=== PATIENT | female | born 1950 | race Caucasian/White ===

== ENCOUNTER 2023-03-11 14:51 | Emergency (ER) | payer MEDICARE, SELFPAY ==
[2023-03-11 15:01] VITALS: BP 129/70
--- NOTE | 2023-03-11 17:12 | ED.GENMED ---
History of Present Illness
<Zaira Whitaker PA-C - Last Filed: 03/12/23 00:33>
General
Chief Complaint: Fall
Source: patient
Exam Limitations: none
Time Seen by Provider: 03/11/23 16:28
Nursing documentation reviewed up to this point in time: agreed with
Travel History
Have you had any contact with someone who has COVID-19?: No
Do you have any symptoms of coronavirus? Fever > 100 degrees, chills, cough, shortness of breath, sore throat, loss of taste or smell, muscle aches, or headache?: No
History of Present Illness
History of Present Illness:
Patient is a 72 y.o female with history DM2, HTN presenting for evaluation of lower back pain after sustaining a fall earlier today. Patient reports that she woke up and was getting up to go to the bathroom when she became dizzy and then proceeded
to slip - landing directly on her back on the hardwood floor. She did not hit her head or lose consciousness. She denies any headache, neck pain, dizziness, numbness or tingling in lower extremities. She denies any chest pain, palpitations,
shortness of breath, diaphoresis. No recent illnesses. No urinary symptoms or GI symptoms.
She did also sustain a floor 3 days ago when she became lightheaded while walking to her kitchen.
She did have a lumbar spinal fusion in 2021.
Past History
<Zaiar Whitaker PA-C - Last Filed: 03/12/23 00:33>
Past History
ED Past Medical History: COPD, HTN, Hypercholesterolemia and NIDDM
Social History
Tobacco: Non-smoker
Family History
Family History: CAD
Phy Exam
<Zaira Whitaker PA-C - Last Filed: 03/12/23 00:33>
Physical Exam
Physical Exam:
General: Moderate distress due to pain and non-toxic, vital signs stable�patient afebrile
HEENT: Atraumatic, normocephalic; pupils equal round reactive light bilaterally, extraocular muscles intact bilaterally protecting airway
Neck: appears supple, no cervical spine tenderness; some lumbar midline spinal tenderness
CV: Regular rate rhythm, heart sounds normal, no evidence of cyanosis
Resp: No evidence of respiratory distress, lungs clear, no accessory muscle use
Abd: Soft, nontender, non-distended
Extremities: No deformities, no evidence of cyanosis or edema, no tenderness of lower legs; full range of motion in bilateral hips, bilateral knees
Neuro: alert and oriented to person place time, speech normal, no focal neurologic deficits
Psych: Normal affect
Skin: Intact, no rashes
Course
<Zaira Whitaker PA-C - Last Filed: 03/12/23 00:33>
Orders/Labs/Results
Orders:
Orders
03/11/23 17:18
Orthostatic VS- Treatment ONCE
Oxycodone/Acetaminophen [Percocet 5/325] 1 tablet PO NOW STA
LS Spine, 2 or 3 View [CR Lumbar Spine 2 Or 3 Views] Urgent
Comment: hx lumbar spinal fusion 2021
Reason For Exam: fall, low back pain
03/11/23 17:19
Electrocardiogram (*1) Urgent
Reason for Study: Vertigo / Dizzy
EKG- Treatment ONCE
03/11/23 17:32
Complete Blood Count/With Diff Urgent
Comprehensive Metabolic Panel Urgent
Troponin I Urgent
03/11/23 19:10
0.9% Sodium Chloride 1000 ml [Nss] 500 ml IV BOLUS
Abnormal Lab Results
03/11/23
17:32
WBC 11.0 H 10^3/uL
(4.8-10.8)
Absolute Neuts (auto) 7.8 H 10^3/uL
(1.4-6.5)
Chloride 95 L mmol/L
(98-107)
Carbon Dioxide 31 H mmol/L
(22-30)
BUN 25 H mg/dl
(7-17)
Glucose 101 H mg/dl
(70-99)
AST 42 H U/L
(14-36)
03/11/23 17:32
03/11/23 17:32
Vital Signs
Initial and Last Documented VS:
Initial Vital Signs
Temp Pulse Resp BP Pulse Ox
98.4 F 94 18 129/70 98
03/11/23 15:01 03/11/23 15:01 03/11/23 15:01 03/11/23 15:01 03/11/23 15:01
Last Documented Vital Signs
Temp Pulse Resp BP Pulse Ox
98.4 F 94 18 129/70 98
03/11/23 15:01 03/11/23 15:01 03/11/23 15:01 03/11/23 15:01 03/11/23 15:01
<Enrrique Hernandez, - Last Filed: 03/11/23 19:46>
Orders/Labs/Results
Orders:
Orders
03/11/23 17:18
Orthostatic VS- Treatment ONCE
Oxycodone/Acetaminophen [Percocet 5/325] 1 tablet PO NOW STA
LS Spine, 2 or 3 View [CR Lumbar Spine 2 Or 3 Views] Urgent
Comment: hx lumbar spinal fusion 2021
Reason For Exam: fall, low back pain
03/11/23 17:19
Electrocardiogram (*1) Urgent
Reason for Study: Vertigo / Dizzy
EKG- Treatment ONCE
03/11/23 17:32
Complete Blood Count/With Diff Urgent
Comprehensive Metabolic Panel Urgent
Troponin I Urgent
03/11/23 19:10
0.9% Sodium Chloride 1000 ml [Nss] 500 ml IV BOLUS
Abnormal Lab Results
03/11/23
17:32
WBC 11.0 H 10^3/uL
(4.8-10.8)
Absolute Neuts (auto) 7.8 H 10^3/uL
(1.4-6.5)
Chloride 95 L mmol/L
(98-107)
Carbon Dioxide 31 H mmol/L
(22-30)
BUN 25 H mg/dl
(7-17)
Glucose 101 H mg/dl
(70-99)
AST 42 H U/L
(14-36)
03/11/23 17:32
03/11/23 17:32
Vital Signs
Initial and Last Documented VS:
Initial Vital Signs
Temp Pulse Resp BP Pulse Ox
98.4 F 94 18 129/70 98
03/11/23 15:01 03/11/23 15:01 03/11/23 15:01 03/11/23 15:01 03/11/23 15:01
Last Documented Vital Signs
Temp Pulse Resp BP Pulse Ox
98.4 F 94 18 129/70 98
03/11/23 15:01 03/11/23 15:01 03/11/23 15:01 03/11/23 15:01 03/11/23 15:01
<Zaira Whitaker PA-C - Last Filed: 03/12/23 00:33>
MDM/Problems Addressed
Differential Diagnosis Includes:
Arrhythmia, hyponatremia, orthostatic hypotension, spinal fracture, spinal contusion
MDM/Problems Addressed:
Patient is a 72-year-old female presenting for back pain after fall earlier today. She endorses dizziness prior to fall today. She had a fall a few days ago due to lightheadedness without sustaining any injuries at the time. No neurologic
deficits. No chest pain, shortness of breath, fever, recent illnesses. History of lumbar spinal fusion in 2021. No recent changes in medications other than increasing her dose of Mounjaro. She is hemodynamically stable. Afebrile. In moderate
distress due to pain. Palpable tenderness to lumbar spine, no C-spine tenderness. She is neurologically intact. Based on history of recent falls due to dizziness/lightheadedness will check basic labs, troponin, EKG. Will get orthostatic vital
signs will get x-ray of lumbar spine. Will give Percocet for pain.
EKG shows normal sinus rhythm without signs of ischemia. CBC without any clinically significant abnormalities. CMP with mild elevation in BUN to 25. Otherwise no clinically significant abnormalities. Troponin negative. Elevation in BUN in
conjunction with borderline orthostatic vital signs suggest likely mild dehydration. Will give IV fluids
X-ray shows acute compression fracture of L1. She was able to ambulate independently. She is stable for discharge with orthopedic follow-up for possible PT. Return precautions discussed. Patient is comfortable this plan. All questions answered.
Chronic conditions affecting care:
HTN, DM
Acute Exacerbation and/or Progression of Chronic Illness:
Compression fracture of L1
<Zaira Whitaker PA-C - Last Filed: 03/12/23 00:33>
*Radiology
Radiology exam reviewed: preliminary read by ED provider and radiology read reviewed
*Pulse Oximetry
Patient hypoxic: no
*EKG
Interpreted by ED Provider?: Yes
EKG Intrepretation Date: 03/12/23
Interpretation: normal
Comparison EKG: changes noted
Heart Rate: 79
Rate: normal
Rhythm: sinus
[place]: normal axis
Interval: normal interval
QRS Pattern: normal QRS
Ischemia: no ischemia
*[place] Nailer Interpretation
Rate: [place] Nailer- N/A
*Critical Care Note
Total Time (30-74mins, 75-104mins- exclusive of procedures): Not Applicable
ED Attending Note
<Zaira Whitaker PA-C - Last Filed: 03/12/23 00:33>
-
Portions of this chart may have been created with voice recognition software.� Occasional wrong word or��sound alike� substitutions may have occurred due to the inherent limitations of voice recognition software.
<Enrrique Hernandez DO - Last Filed: 03/11/23 19:46>
ED Attending Note
Patient seen and examined by attending physician: Yes
I performed the substantive portion of visit, reviewed & personally made and approve the management plan that is documented in note by myself or MATTHEW.: Yes
ED Attending Note:
Patient is a 72-year-old female presents to the emergency department complaining of back pain. 3 days ago the patient stood up and walked down into her kitchen while in the kitchen became lightheaded and fell to the floor. Patient states she has
sore back and hit her head but was able to get up without difficulty has been fine since. This morning the patient got up and felt dizzy as in the room spinning around as well as lightheaded. Patient went to the bathroom and then found herself on
the floor. Patient denies syncope. Patient does complain of much more severe back pain. Patient had a fusion of L4 and 5 in the past. Patient denies any chest pain, palpitations, shortness of breath, diaphoresis. Patient denies any GI or
symptoms. Patient denies any visual or speech difficulties. Patient denies any focal weakness. Patient states today was feeling dizzy and lightheaded. On physical exam patient appears to be in minimal distress. Normocephalic with mild
tenderness or trauma. Neck is supple without tenderness in the cervical spine. No neck vein distention or bruits. Heart is regular lungs are clear. Abdomen is soft nontender. Extremities without edema, cyanosis or tenderness. Patient does
have palpable lumbar spine tenderness. X-rays show L1 compression fracture. EKG and labs are unremarkable except for an elevated BUN. Will give the patient fluids that she has a mild tilt. Patient was encouraged to remain hydrated and referred
to orthopedics for compression fracture and follow-up with probable physical therapy.
Discharge Plan
Departure
Patient Disposition: Home (Routine Discharge)
Date of Disposition: 03/11/23
Time of Disposition: 19:51
Patient with high blood pressure during this ER visit?: Yes
Condition: Good
Covid-19: Not Applicable
Discharge Problem:
Compression fracture of L1 vertebra
Instructions: Vertebral Compression Fracture (DC)
Prescriptions:
New
oxycodone 5 mg tablet
5 mg PO Q6H PRN (Reason: Pain) Qty: 10 0RF
No Action
amoxicillin-pot clavulanate 875-125 mg tablet
1 tab PO BID Qty: 20 0RF
mupirocin calcium 2 % cream
1 applic topical TID Qty: 30 0RF
Referrals:
Etienne Russell MD [Active] - As needed
Maddie Flores DO [Family Provider] -
Reji Dickinson MD [Active] - As needed
Activity Restrictions/Additional Instructions:
-Return to the emergency department with any chest pain, shortness of breath, numbness or weakness in lower extremities, loss of bowel/bladder control, significant worsening in current symptoms, or any other concerns
-Your prescription has been sent to your pharmacy. Take these as needed for severe pain. These may make your drowsy. Do not take prior to driving.
-Can take tylenol as needed for pain.
-Follow-up with orthopedics or pain management as needed
Interventions
Interventions:
*Risk Screen - Suicide Last Done: 03/11/23 15:01
*General Assessment Last Done: 03/11/23 16:42
*Neglect/Abuse Screening Last Done: 03/11/23 15:01
ED- Fall Risk Assessment Last Done: 03/11/23 16:49
*ED COVID-19 Vaccine History Last Done: 03/11/23 15:01
*Nursing Disposition Last Done: 03/11/23 20:05
ED-Musculoskeletal Assessment Last Done: 03/11/23 16:43
ED- Neurological Assessment Last Done: 03/11/23 16:43
ED-Skin Assessment Last Done: 03/11/23 16:43
Discharge Date and Time
Discharge Date/Time: 03/11/23 20:06
[2023-03-11] MEDS: PERCOCET 5/325 1 TABLET PO (17:26)
[2023-03-11 17:40] LABS: % Basophils 0.8 % (0-2); % Eosinophils 1.2 % (0-6); % Immature Granulocytes 0.4 % (0-0.5); % Monocytes 5.7 % (1.7-9.3); % Neutrophils 70.9 % (42.2-75.2); Absolute Basophils 0.1 10^3/uL (0-0.2); Absolute Eosinophils 0.1 10^3/uL (0-0.7); Absolute Lymphocytes 2.3 10^3/uL (1.2-3.4); Absolute Monocytes 0.6 10^3/uL (0.1-0.6); Absolute Neutrophils 7.8 10^3/uL (1.4-6.5); Hematocrit 39.3 % (37.0-47.0); Hemoglobin 13.6 g/dL (12.0-16.0); Mean Corp Hgb Conc. 34.6 g/dL (33.0-37.0); Mean Corpuscular Hgb 29.4 pg (27.0-31.0); Mean Corpuscular Volume 85.1 fL (81.0-99.0); Mean Platelet Volume 8.6 fL (7.4-10.4); Nucleated Red Blood Cells % 0 %; Platelet Count 306 10^3/uL (130-400); Red Blood Cell Count 4.62 10^6/uL (4.20-5.40); Red Cell Dist. Width 13.6 % (11.5-14.5)
[2023-03-11 17:53] VITALS: BP 105/56; BP 110/61; BP 122/62; PULSE 78; PULSE 82; PULSE 86
[2023-03-11 18:00] LABS: ALT (SGPT) 34 U/L (0-35); AST (SGOT) 42 U/L (14-36); Albumin 4.1 g/dl (3.5-5.0); Alkaline Phosphatase 71 U/L (38-126); Blood Urea Nitrogen 25 mg/dl (7-17); Carbon Dioxide 31 mmol/L (22-30); Chloride 95 mmol/L (98-107); Glucose 101 mg/dl (70-99); Sodium 136 mmol/L (135-145); Total Bilirubin 0.8 mg/dl (0.2-1.3); Total Protein 7.1 g/dl (6.3-8.2); eGFR > 60.00
[2023-03-11 18:06] LABS: Troponin I < 0.012 ng/ml
[2023-03-11 18:08] LABS: Potassium 4.8 mmol/L (3.5-5.1)
[2023-03-11] MEDS: NSS 500 IV (19:18)
== END 2023-03-11 20:06 | disposition home or self-care (01) ==
LOC: EMR 14:51
PROVIDERS: Physician Assistant; EMERGENCY PHYSICIAN Emergency Medicine; FAMILY PHYSICIAN Family Medicine
DX: S32.018A Other fracture of first lumbar vertebra, initial encounter for closed fracture (principal); W19.XXXA Unspecified fall, initial encounter; E11.9 Type 2 diabetes mellitus without complications; I10 Essential (primary) hypertension; J44.9 Chronic obstructive pulmonary disease, unspecified; E78.00 Pure hypercholesterolemia, unspecified; Z82.49 Family history of ischemic heart disease and other diseases of the circulatory system; Z98.1 Arthrodesis status
CPT/HCPCS: 99283; 96360; 72100; 80053; 84484; 85025; 93005

== ENCOUNTER → 2023-07-08 08:56 | Outpatient (REF) | payer MEDICARE, SELFPAY | LOC: RAD 08:56 | PROVIDERS: ATTENDING PHYSICIAN Family Medicine | DX: Z78.0 Asymptomatic menopausal state (principal) | CPT/HCPCS: 77080 ==

== ENCOUNTER → 2023-12-04 09:04 | Outpatient (REF) | payer MEDICARE, SELFPAY | LOC: PAVMRI 09:04 | PROVIDERS: ATTENDING PHYSICIAN Physician Assistant; PRIMARYCARE PHYSICIAN Family Medicine | DX: R42 Dizziness and giddiness (principal) | CPT/HCPCS: 70553; A9575 ==

== ENCOUNTER → 2024-10-22 11:13 | Outpatient (REF) | payer MEDICARE, SELFPAY | LOC: RCS 11:13 | PROVIDERS: ATTENDING PHYSICIAN Family Medicine | DX: I35.1 Nonrheumatic aortic (valve) insufficiency (principal) | CPT/HCPCS: 93306 ==